=== PATIENT | male | born 1975 | race Caucasian/White ===

== ENCOUNTER 2020-06-09 18:19 | Observation (INO) ==
[2020-06-09] MEDS ORDERED: Aspirin 325 MG TABLET PO ONE (18:43)
[2020-06-09 18:59] LABS: Basophils # 0.1 K/mcL (0.0-0.2); Basophils % 0.3 %; Eosinophils # 0.2 K/mcL (0.0-0.6); Eosinophils % 1.1 %; Hematocrit 37.5 % (37.5-50.1); Hemoglobin 12.4 g/dL (12.9-16.9); Immature Granulocytes % 0.6 % (0-4); Lymphocytes # 1.6 K/mcL (0.6-4.6); Lymphocytes % 10.5 %; Mean Corpuscular HGB Conc 33.1 g/dL (31.6-35.5); Mean Corpuscular Hemoglobin 30.1 pg (28.0-33.3); Mean Platelet Volume 10.6 fL (9.4-12.4); Monocytes # 0.6 K/mcL (0.0-1.3); Monocytes % 4.1 %; Neutrophils # 12.9 K/mcL (1.6-8.9); Platelet Count 252 K/mcL (140-400); Red Blood Count 4.12 M/mcL (4.19-5.50); Segmented Neutrophils % 83.4 %; White Blood Count 15.5 K/mcL (4.3-11.1)
[2020-06-09 19:00] LABS: INR 1.1; Prothrombin Time 12.2 Seconds (9.4-12.1)
[2020-06-09 19:03] LABS: Activated Partial Thrombo Time 29.4 Seconds (26.0-36.0)
[2020-06-09] MEDS: Nitroglycerin 0.4 MG TAB.SUBL SL PRN ×2 (19:11→19:20)
[2020-06-09 19:17] LABS: BUN/Creatinine Ratio 17 (6-26); Blood Urea Nitrogen 18 mg/dL (6-20); Calcium 9.2 mg/dL (8.6-10.3); Carbon Dioxide 22 mEq/L (23-29); Chloride 104 mEq/L (98-107); Glucose 119 mg/dL (70-105); Osmolality,Calculated 283 (280-300); Sodium 135 mEq/L (136-145); eGFR For African Americans > 60 (> 60); eGFR For Non-African Americans > 60 (> 60)
[2020-06-09 19:18] LABS: Troponin I < 0.03 ng/mL (< 0.04)
[2020-06-09 19:59] LABS: D-Dimer < 215 ng/mLFEU (0-500)
[2020-06-09 21:38] LABS: Amphetamine Screen,Urine Negative ng/mL (Cutoff=1000); Barbiturate Screen,Urine Negative ng/mL (Cutoff=200); Benzodiazepines Screen,Urine Negative ng/mL (Cutoff=200); Cannabinoid Screen,Urine Negative ng/mL (Cutoff = 50); Cocaine Screen,Urine Negative ng/mL (Cutoff= 300); Opiate Screen,Urine Negative ng/mL (Cutoff=300); Phencyclidine Screen,Urine Negative ng/mL (Cutoff=25)
[2020-06-09] MEDS ORDERED: Acetaminophen 325 MG TABLET PO PRN (21:52)
[2020-06-09] MEDS ORDERED: Ondansetron ODT 4 MG TAB.RAPDIS SL PRN (21:52)
[2020-06-09] MEDS ORDERED: Naloxone 0.4 MG/ML INJ IVP PRN (21:52)
[2020-06-09] MEDS ORDERED: Perflutren Lipid Microsphere 1.3 ML in 0.9 % Sodium Chloride 8.7 ML IVP PRN (21:56)
[2020-06-09 23:38] LABS: Ethanol < 10 mg/dL (Less than 10)
[2020-06-10 00:51] LABS: Hemoglobin 12.5 g/dL (12.9-16.9); Mean Corpuscular HGB Conc 32.9 g/dL (31.6-35.5); Mean Corpuscular Hemoglobin 30.5 pg (28.0-33.3); Mean Corpuscular Volume 92.7 fL (83.0-100.0); Mean Platelet Volume 10.6 fL (9.4-12.4); Platelet Count 250 K/mcL (140-400); Red Cell Distribution Width 13.2 % (11.5-14.5); White Blood Count 12.1 K/mcL (4.3-11.1)
[2020-06-10 00:59] LABS: INR 1.1; Prothrombin Time 12.8 Seconds (9.4-12.1)
[2020-06-10 01:14] LABS: Alanine Aminotransferase 10 Units/L (7-52); Albumin 4.2 g/dL (3.5-5.7); Albumin/Globulin Ratio 1.6 (1.1-2.2); Alkaline Phosphatase 43 Units/L (34-104); Aspartate Amino Transferase 15 Units/L (13-39); BUN/Creatinine Ratio 14 (6-26); Bilirubin,Total 0.6 mg/dL (0.3-1.0); Blood Urea Nitrogen 15 mg/dL (6-20); Calcium 8.8 mg/dL (8.6-10.3); Carbon Dioxide 23 mEq/L (23-29); Chloride 102 mEq/L (98-107); Chol/HDL Ratio 4.7 (0-4.9); Cholesterol 154 mg/dL (< 200); Globulin 2.6 g/dL (2.4-3.5); Glucose 159 mg/dL (70-105); HDL Cholesterol 33 mg/dL (40-59); Osmolality,Calculated 284 (280-300); Potassium 3.4 mEq/L (3.5-5.1); Sodium 135 mEq/L (136-145); Total Protein 6.8 g/dL (6.4-8.9); Triglycerides 557 mg/dL (< 150); eGFR For African Americans > 60 (> 60); eGFR For Non-African Americans > 60 (> 60)
[2020-06-10 01:22] LABS: Thyroid Stimulating Hormone 3.813 mcIU/mL (0.340-5.600)
[2020-06-10 03:15] LABS: Estimated Average Glucose 126 mg/dl
[2020-06-10 04:03] LABS: Bilirubin,Urine Negative (Negative); Blood,Urine Negative (Negative); Clarity,Urine Clear (Clear); Color,Urine Colorless (Yellow); Glucose,Urine (UA) Normal (Normal); Ketones,Urine Negative (Negative); Leukocyte Esterase,Urine Negative (Negative); Nitrite,Urine Negative (Negative); Protein,Urine Negative (Neg-Trace); Specific Gravity,Urine 1.016 (1.010-1.025); Urobilinogen,Urine Normal (Normal)
[2020-06-10] MEDS: *HR* Heparin 5,000 UNIT/ML VIAL SQ SCH (17:48)
[2020-06-11 03:09] LABS: Basophils # 0.1 K/mcL (0.0-0.2); Basophils % 0.6 %; Eosinophils # 0.3 K/mcL (0.0-0.6); Hematocrit 39.1 % (37.5-50.1); Hemoglobin 12.9 g/dL (12.9-16.9); Immature Granulocytes % 0.7 % (0-4); Lymphocytes # 2.4 K/mcL (0.6-4.6); Lymphocytes % 28.6 %; Mean Corpuscular Hemoglobin 30.7 pg (28.0-33.3); Mean Corpuscular Volume 93.1 fL (83.0-100.0); Mean Platelet Volume 10.5 fL (9.4-12.4); Monocytes # 0.5 K/mcL (0.0-1.3); Monocytes % 6.2 %; Platelet Count 238 K/mcL (140-400); Red Cell Distribution Width 13.2 % (11.5-14.5); Segmented Neutrophils % 60.9 %; White Blood Count 8.3 K/mcL (4.3-11.1)
[2020-06-11 03:31] LABS: BUN/Creatinine Ratio 13 (6-26); Blood Urea Nitrogen 14 mg/dL (6-20); Calcium 8.9 mg/dL (8.6-10.3); Carbon Dioxide 25 mEq/L (23-29); Chloride 104 mEq/L (98-107); Glucose 115 mg/dL (70-105); Osmolality,Calculated 283 (280-300); Potassium 3.9 mEq/L (3.5-5.1); Sodium 136 mEq/L (136-145); eGFR For African Americans > 60 (> 60); eGFR For Non-African Americans > 60 (> 60)
[2020-06-11] MEDS: *HR* Heparin 5,000 UNIT/ML VIAL SQ SCH (05:54)
[2020-06-11] MEDS ORDERED: Regadenoson 0.4 MG/5 ML SYRINGE IVP ONE (06:16)
[2020-06-11] MEDS ORDERED: Aspirin 81 MG TAB.CHEW PO SCH (09:00)
[2020-06-11] MEDS ORDERED: hydroCHLOROthiazide 25 MG TABLET PO SCH (09:00)
[2020-06-11] MEDS ORDERED: DilTIAZem CD (24hr) 240 MG CAP.ER.24H PO SCH (09:00)
[2020-06-11] MEDS ORDERED: lisinopriL 20 MG TABLET PO SCH (09:00)
[2020-06-11 11:18] VITALS: BP 128/84
== END 2020-06-11 14:50 | disposition home or self-care (01) ==
LOC: 3BNU 18:19 → EMEROOARM 18:19 → SUATTDRO 22:00 → 3BNU 22:49
PROVIDERS: ADMIT Internal Medicine; ATTEND Nurse Practitioner